=== PATIENT | male | born 1950 | race Caucasian/White ===

== ENCOUNTER 2020-07-28 14:56 | Inpatient (IN) ==
[2020-07-28] MEDS ORDERED: Ondansetron ODT 4 MG TAB.RAPDIS SL PRN (17:19)
[2020-07-28] MEDS: Acetaminophen 325 MG TABLET PO PRN (18:03)
[2020-07-28] MEDS: Hydrocortisone 10 MG TABLET PO SCH (18:04)
[2020-07-28] MEDS: Fluticasone Propionate Nasal 50 MCG/SPRAY BOTTLE NS SCH (19:58)
[2020-07-28] MEDS: levETIRAcetam 250 MG TABLET PO SCH (19:58)
[2020-07-28] MEDS: Melatonin 3 MG TABLET PO SCH (19:58)
[2020-07-28] MEDS: Famotidine 20 MG TABLET PO SCH (19:58)
[2020-07-28] MEDS: dexAMETHasone 4 MG TABLET PO SCH (19:58)
[2020-07-28] MEDS: Sulfamethoxazole/Trimeth Oral Soln 400-80mg/10 ML UDC PO SCH (19:59)
[2020-07-28] MEDS: Latanoprost 2.5 ML BOTTLE BOTH EYES SCH (19:59)
[2020-07-29] MEDS: *HR* Enoxaparin 40 MG/0.4 ML SYRINGE SQ SCH (06:45)
[2020-07-29 07:15] LABS: Hematocrit 41.5 % (37.5-50.1); Hemoglobin 13.8 g/dL (12.9-16.9); Mean Corpuscular HGB Conc 33.3 g/dL (31.6-35.5); Mean Corpuscular Hemoglobin 30.4 pg (28.0-33.3); Mean Corpuscular Volume 91.4 fL (83.0-100.0); Mean Platelet Volume 11.6 fL (9.4-12.4); Platelet Count 197 K/mcL (140-400); Red Blood Count 4.54 M/mcL (4.19-5.50); Red Cell Distribution Width 12.7 % (11.5-14.5)
[2020-07-29 07:18] LABS: White Blood Count 34.8 K/mcL (4.3-11.1)
[2020-07-29 07:32] LABS: BUN/Creatinine Ratio 26 (6-26); Blood Urea Nitrogen 32 mg/dL (8-23); Calcium 7.9 mg/dL (8.6-10.3); Carbon Dioxide 28 mEq/L (23-29); Chloride 101 mEq/L (98-107); Glucose 117 mg/dL (70-105); Osmolality,Calculated 288 (280-300); Potassium 4.7 mEq/L (3.5-5.1); Sodium 135 mEq/L (136-145); eGFR For African Americans > 60 (> 60); eGFR For Non-African Americans 58 (> 60)
[2020-07-29 08:35] LABS: Lymphocytes # 2.8 K/mcL (0.6-4.6); Neutrophils # 31.3 K/mcL (1.6-8.9); Platelet Estimate Normal (Normal); Toxic Vacuolation Present (Not Present)
[2020-07-29] MEDS: Hydrocortisone 10 MG TABLET PO SCH ×2 (10:04→17:01)
[2020-07-29] MEDS: Famotidine 20 MG TABLET PO SCH ×2 (10:04→19:51)
[2020-07-29] MEDS: Ascorbic Acid 500 MG TABLET PO SCH (10:05)
[2020-07-29] MEDS: Cholecalciferol (D-3) 1,000 UNIT (25MCG) TABLET PO SCH (10:05)
[2020-07-29] MEDS: levETIRAcetam 250 MG TABLET PO SCH ×2 (10:05→19:51)
[2020-07-29] MEDS: lisinopriL 10 MG TABLET PO SCH (10:06)
[2020-07-29] MEDS: dexAMETHasone 4 MG TABLET PO SCH ×2 (10:06→19:51)
[2020-07-29] MEDS: Sulfamethoxazole/Trimeth Oral Soln 400-80mg/10 ML UDC PO SCH ×2 (10:06→19:50)
[2020-07-29] MEDS: Aspirin Enteric Coated 81 MG Tablet PO SCH (10:09)
[2020-07-29] MEDS: TEMOZOLOMIDE PO SCH (10:10)
[2020-07-29] MEDS: Fluticasone Propionate Nasal 50 MCG/SPRAY BOTTLE NS SCH ×2 (10:10→19:51)
[2020-07-29] MEDS: Melatonin 3 MG TABLET PO SCH (19:51)
[2020-07-29] MEDS: Latanoprost 2.5 ML BOTTLE BOTH EYES SCH (19:52)
[2020-07-30] MEDS: *HR* Enoxaparin 40 MG/0.4 ML SYRINGE SQ SCH (05:40)
[2020-07-30] MEDS: levETIRAcetam 250 MG TABLET PO SCH ×2 (08:17→19:56)
[2020-07-30] MEDS: Aspirin Enteric Coated 81 MG Tablet PO SCH (08:17)
[2020-07-30] MEDS: lisinopriL 10 MG TABLET PO SCH (08:17)
[2020-07-30] MEDS: Cholecalciferol (D-3) 1,000 UNIT (25MCG) TABLET PO SCH (08:18)
[2020-07-30] MEDS: Ascorbic Acid 500 MG TABLET PO SCH (08:18)
[2020-07-30] MEDS: dexAMETHasone 4 MG TABLET PO SCH ×2 (08:18→19:56)
[2020-07-30] MEDS: Famotidine 20 MG TABLET PO SCH ×2 (08:18→19:56)
[2020-07-30] MEDS: Sulfamethoxazole/Trimeth Oral Soln 400-80mg/10 ML UDC PO SCH ×2 (08:19→19:56)
[2020-07-30] MEDS: Hydrocortisone 10 MG TABLET PO SCH ×2 (08:19→17:25)
[2020-07-30] MEDS: Fluticasone Propionate Nasal 50 MCG/SPRAY BOTTLE NS SCH ×2 (08:25→19:57)
[2020-07-30] MEDS: TEMOZOLOMIDE PO SCH (14:47)
[2020-07-30] MEDS: Latanoprost 2.5 ML BOTTLE BOTH EYES SCH (19:57)
[2020-07-30] MEDS: Melatonin 3 MG TABLET PO SCH (19:57)
[2020-07-31] MEDS: *HR* Enoxaparin 40 MG/0.4 ML SYRINGE SQ SCH (05:48)
[2020-07-31] MEDS: Fluticasone Propionate Nasal 50 MCG/SPRAY BOTTLE NS SCH ×2 (08:00→21:12)
[2020-07-31] MEDS: Ascorbic Acid 500 MG TABLET PO SCH (08:01)
[2020-07-31] MEDS: Famotidine 20 MG TABLET PO SCH ×2 (08:01→21:12)
[2020-07-31] MEDS: Hydrocortisone 10 MG TABLET PO SCH ×2 (08:01→17:56)
[2020-07-31] MEDS: Aspirin Enteric Coated 81 MG Tablet PO SCH (08:01)
[2020-07-31] MEDS: Sulfamethoxazole/Trimeth Oral Soln 400-80mg/10 ML UDC PO SCH ×2 (08:01→21:13)
[2020-07-31] MEDS: levETIRAcetam 250 MG TABLET PO SCH ×2 (08:01→21:11)
[2020-07-31] MEDS: Cholecalciferol (D-3) 1,000 UNIT (25MCG) TABLET PO SCH (08:02)
[2020-07-31] MEDS: lisinopriL 10 MG TABLET PO SCH (08:03)
[2020-07-31] MEDS: dexAMETHasone 4 MG TABLET PO SCH ×2 (08:03→21:12)
[2020-07-31] MEDS: TEMOZOLOMIDE PO SCH (08:03)
[2020-07-31] MEDS: Melatonin 3 MG TABLET PO SCH (21:12)
[2020-07-31] MEDS: Latanoprost 2.5 ML BOTTLE BOTH EYES SCH (21:12)
[2020-08-01] MEDS: *HR* Enoxaparin 40 MG/0.4 ML SYRINGE SQ SCH (05:52)
[2020-08-01] MEDS ORDERED: TEMOZOLOMIDE 140 MG PO SCH (09:00)
[2020-08-01] MEDS: dexAMETHasone 4 MG TABLET PO SCH ×2 (09:25→20:08)
[2020-08-01] MEDS: levETIRAcetam 250 MG TABLET PO SCH ×2 (09:25→20:09)
[2020-08-01] MEDS: Famotidine 20 MG TABLET PO SCH ×2 (09:25→20:09)
[2020-08-01] MEDS: Cholecalciferol (D-3) 1,000 UNIT (25MCG) TABLET PO SCH (09:26)
[2020-08-01] MEDS: lisinopriL 10 MG TABLET PO SCH (09:26)
[2020-08-01] MEDS: Hydrocortisone 10 MG TABLET PO SCH ×2 (09:26→16:32)
[2020-08-01] MEDS: Aspirin Enteric Coated 81 MG Tablet PO SCH (09:26)
[2020-08-01] MEDS: Sulfamethoxazole/Trimeth DS 1 EACH TABLET PO SCH ×2 (09:27→20:09)
[2020-08-01] MEDS: Ascorbic Acid 500 MG TABLET PO SCH (09:27)
[2020-08-01] MEDS: Fluticasone Propionate Nasal 50 MCG/SPRAY BOTTLE NS SCH ×2 (09:27→20:09)
[2020-08-01] MEDS: Melatonin 3 MG TABLET PO SCH (20:08)
[2020-08-01] MEDS: Latanoprost 2.5 ML BOTTLE BOTH EYES SCH (20:09)
[2020-08-02] MEDS: *HR* Enoxaparin 40 MG/0.4 ML SYRINGE SQ SCH (06:21)
[2020-08-02] MEDS: lisinopriL 10 MG TABLET PO SCH (08:31)
[2020-08-02] MEDS: Hydrocortisone 10 MG TABLET PO SCH ×2 (08:31→16:18)
[2020-08-02] MEDS: Sulfamethoxazole/Trimeth DS 1 EACH TABLET PO SCH ×2 (08:31→20:20)
[2020-08-02] MEDS: dexAMETHasone 4 MG TABLET PO SCH ×2 (08:31→16:18)
[2020-08-02] MEDS: Aspirin Enteric Coated 81 MG Tablet PO SCH (08:32)
[2020-08-02] MEDS: Famotidine 20 MG TABLET PO SCH ×2 (08:32→20:19)
[2020-08-02] MEDS: levETIRAcetam 250 MG TABLET PO SCH ×2 (08:32→20:19)
[2020-08-02] MEDS: Cholecalciferol (D-3) 1,000 UNIT (25MCG) TABLET PO SCH (08:32)
[2020-08-02] MEDS: Ascorbic Acid 500 MG TABLET PO SCH (08:33)
[2020-08-02] MEDS: Fluticasone Propionate Nasal 50 MCG/SPRAY BOTTLE NS SCH ×2 (08:33→20:20)
[2020-08-02] MEDS: TEMOZOLOMIDE 140 MG PO SCH (08:33)
[2020-08-02] MEDS: Melatonin 3 MG TABLET PO SCH (20:19)
[2020-08-02] MEDS: Latanoprost 2.5 ML BOTTLE BOTH EYES SCH (23:41)
[2020-08-03] MEDS: *HR* Enoxaparin 40 MG/0.4 ML SYRINGE SQ SCH (05:54)
[2020-08-03 08:17] LABS: Basophils # 0.1 K/mcL (0.0-0.2); Basophils % 0.2 %; Hematocrit 41.1 % (37.5-50.1); Hemoglobin 13.7 g/dL (12.9-16.9); Immature Granulocytes % 3.3 % (0-4); Lymphocytes # 0.9 K/mcL (0.6-4.6); Lymphocytes % 2.6 %; Mean Corpuscular HGB Conc 33.3 g/dL (31.6-35.5); Mean Corpuscular Hemoglobin 30.6 pg (28.0-33.3); Mean Corpuscular Volume 91.7 fL (83.0-100.0); Mean Platelet Volume 11.2 fL (9.4-12.4); Monocytes # 1.2 K/mcL (0.0-1.3); Monocytes % 3.6 %; Neutrophils # 29.9 K/mcL (1.6-8.9); Platelet Count 166 K/mcL (140-400); Red Blood Count 4.48 M/mcL (4.19-5.50); Segmented Neutrophils % 90.3 %
[2020-08-03 08:27] LABS: White Blood Count 33.1 K/mcL (4.3-11.1)
[2020-08-03 08:46] LABS: Platelet Estimate Normal (Normal)
[2020-08-03] MEDS: TEMOZOLOMIDE 140 MG PO SCH (08:49)
[2020-08-03 08:50] LABS: Alanine Aminotransferase 614 Units/L (7-52)
[2020-08-03] MEDS: Cholecalciferol (D-3) 1,000 UNIT (25MCG) TABLET PO SCH (08:50)
[2020-08-03] MEDS: Aspirin Enteric Coated 81 MG Tablet PO SCH (08:50)
[2020-08-03] MEDS: levETIRAcetam 250 MG TABLET PO SCH ×2 (08:50→20:45)
[2020-08-03] MEDS: Ascorbic Acid 500 MG TABLET PO SCH (08:50)
[2020-08-03] MEDS: Sulfamethoxazole/Trimeth DS 1 EACH TABLET PO SCH ×2 (08:50→20:45)
[2020-08-03] MEDS: Famotidine 20 MG TABLET PO SCH ×2 (08:51→20:45)
[2020-08-03] MEDS: dexAMETHasone 4 MG TABLET PO SCH ×2 (08:51→16:49)
[2020-08-03] MEDS: Hydrocortisone 10 MG TABLET PO SCH ×2 (08:51→16:50)
[2020-08-03] MEDS: Fluticasone Propionate Nasal 50 MCG/SPRAY BOTTLE NS SCH ×2 (08:52→20:57)
[2020-08-03] MEDS: lisinopriL 10 MG TABLET PO SCH (08:52)
[2020-08-03 08:54] LABS: Albumin 3.2 g/dL (3.5-5.7); Albumin/Globulin Ratio 1.3 (1.1-2.2); Alkaline Phosphatase 107 Units/L (34-104); Aspartate Amino Transferase 120 Units/L (13-39); BUN/Creatinine Ratio 35 (6-26); Bilirubin,Total 0.5 mg/dL (0.3-1.0); Blood Urea Nitrogen 40 mg/dL (8-23); Calcium 7.4 mg/dL (8.6-10.3); Carbon Dioxide 22 mEq/L (23-29); Chloride 100 mEq/L (98-107); Globulin 2.4 g/dL (2.4-3.5); Glucose 102 mg/dL (70-105); Osmolality,Calculated 280 (280-300); Potassium 5.1 mEq/L (3.5-5.1); Sodium 130 mEq/L (136-145); Total Protein 5.6 g/dL (6.4-8.9); eGFR For African Americans > 60 (> 60); eGFR For Non-African Americans > 60 (> 60)
[2020-08-03] MEDS: Acetaminophen 325 MG TABLET PO PRN (12:01)
[2020-08-03] MEDS: Latanoprost 2.5 ML BOTTLE BOTH EYES SCH (20:45)
[2020-08-03] MEDS: Melatonin 3 MG TABLET PO SCH (20:45)
[2020-08-04] MEDS: *HR* Enoxaparin 40 MG/0.4 ML SYRINGE SQ SCH (06:00)
[2020-08-04] MEDS: Cholecalciferol (D-3) 1,000 UNIT (25MCG) TABLET PO SCH (08:36)
[2020-08-04] MEDS: levETIRAcetam 250 MG TABLET PO SCH ×2 (08:36→21:02)
[2020-08-04] MEDS: Famotidine 20 MG TABLET PO SCH ×2 (08:37→21:02)
[2020-08-04] MEDS: Sulfamethoxazole/Trimeth DS 1 EACH TABLET PO SCH ×2 (08:37→21:03)
[2020-08-04] MEDS: Aspirin Enteric Coated 81 MG Tablet PO SCH (08:37)
[2020-08-04] MEDS: Ascorbic Acid 500 MG TABLET PO SCH (08:37)
[2020-08-04] MEDS: lisinopriL 10 MG TABLET PO SCH (08:37)
[2020-08-04] MEDS: TEMOZOLOMIDE 140 MG PO SCH (08:38)
[2020-08-04] MEDS: dexAMETHasone 4 MG TABLET PO SCH ×2 (08:43→17:40)
[2020-08-04] MEDS: Fluticasone Propionate Nasal 50 MCG/SPRAY BOTTLE NS SCH ×2 (08:44→21:03)
[2020-08-04] MEDS: Hydrocortisone 10 MG TABLET PO SCH ×2 (08:44→17:40)
[2020-08-04] MEDS: Melatonin 3 MG TABLET PO SCH (21:02)
[2020-08-04] MEDS: Acetaminophen 325 MG TABLET PO PRN (21:03)
[2020-08-04] MEDS: Latanoprost 2.5 ML BOTTLE BOTH EYES SCH (21:03)
[2020-08-05] MEDS: Acetaminophen 325 MG TABLET PO PRN ×3 (03:48→18:45)
[2020-08-05] MEDS: *HR* Enoxaparin 40 MG/0.4 ML SYRINGE SQ SCH (05:51)
[2020-08-05] MEDS: lisinopriL 10 MG TABLET PO SCH (07:46)
[2020-08-05] MEDS: Aspirin Enteric Coated 81 MG Tablet PO SCH (07:46)
[2020-08-05] MEDS: Ascorbic Acid 500 MG TABLET PO SCH (07:46)
[2020-08-05] MEDS: dexAMETHasone 4 MG TABLET PO SCH ×2 (07:46→18:45)
[2020-08-05] MEDS: Famotidine 20 MG TABLET PO SCH ×2 (07:46→20:12)
[2020-08-05] MEDS: Sulfamethoxazole/Trimeth DS 1 EACH TABLET PO SCH ×2 (07:46→20:12)
[2020-08-05] MEDS: Fluticasone Propionate Nasal 50 MCG/SPRAY BOTTLE NS SCH ×2 (07:47→20:08)
[2020-08-05] MEDS: Hydrocortisone 10 MG TABLET PO SCH ×2 (07:47→18:44)
[2020-08-05] MEDS: levETIRAcetam 250 MG TABLET PO SCH ×2 (07:47→20:12)
[2020-08-05] MEDS: Cholecalciferol (D-3) 1,000 UNIT (25MCG) TABLET PO SCH (07:47)
[2020-08-05] MEDS: TEMOZOLOMIDE 140 MG PO SCH (09:38)
[2020-08-05] MEDS: Melatonin 3 MG TABLET PO SCH (20:12)
[2020-08-05] MEDS: Latanoprost 2.5 ML BOTTLE BOTH EYES SCH (20:13)
[2020-08-06] MEDS: *HR* Enoxaparin 40 MG/0.4 ML SYRINGE SQ SCH (05:35)
[2020-08-06] MEDS: Famotidine 20 MG TABLET PO SCH ×2 (09:31→21:48)
[2020-08-06] MEDS: TEMOZOLOMIDE 140 MG PO SCH (09:31)
[2020-08-06] MEDS: dexAMETHasone 4 MG TABLET PO SCH ×2 (09:31→17:02)
[2020-08-06] MEDS: Fluticasone Propionate Nasal 50 MCG/SPRAY BOTTLE NS SCH ×2 (09:32→21:51)
[2020-08-06] MEDS: lisinopriL 10 MG TABLET PO SCH (09:32)
[2020-08-06] MEDS: Ascorbic Acid 500 MG TABLET PO SCH (09:32)
[2020-08-06] MEDS: Hydrocortisone 10 MG TABLET PO SCH ×2 (09:32→17:02)
[2020-08-06] MEDS: levETIRAcetam 250 MG TABLET PO SCH ×2 (09:32→21:50)
[2020-08-06] MEDS: Cholecalciferol (D-3) 1,000 UNIT (25MCG) TABLET PO SCH (09:32)
[2020-08-06] MEDS: Sulfamethoxazole/Trimeth DS 1 EACH TABLET PO SCH ×2 (09:32→21:50)
[2020-08-06] MEDS: Aspirin Enteric Coated 81 MG Tablet PO SCH (09:32)
[2020-08-06] MEDS: Acetaminophen 325 MG TABLET PO PRN (13:55)
[2020-08-06] MEDS: Melatonin 3 MG TABLET PO SCH (21:49)
[2020-08-06] MEDS: Latanoprost 2.5 ML BOTTLE BOTH EYES SCH (21:51)
[2020-08-07] MEDS: *HR* Enoxaparin 40 MG/0.4 ML SYRINGE SQ SCH (06:01)
[2020-08-07] MEDS: Hydrocortisone 10 MG TABLET PO SCH ×2 (08:28→17:19)
[2020-08-07] MEDS: levETIRAcetam 250 MG TABLET PO SCH ×2 (08:29→21:27)
[2020-08-07] MEDS: Cholecalciferol (D-3) 1,000 UNIT (25MCG) TABLET PO SCH (08:29)
[2020-08-07] MEDS: Ascorbic Acid 500 MG TABLET PO SCH (08:29)
[2020-08-07] MEDS: Aspirin Enteric Coated 81 MG Tablet PO SCH (08:29)
[2020-08-07] MEDS: Famotidine 20 MG TABLET PO SCH ×2 (08:29→21:27)
[2020-08-07] MEDS: lisinopriL 10 MG TABLET PO SCH (08:29)
[2020-08-07] MEDS: Acetaminophen 325 MG TABLET PO PRN ×2 (08:29→16:07)
[2020-08-07] MEDS: dexAMETHasone 4 MG TABLET PO SCH ×2 (08:29→17:19)
[2020-08-07] MEDS: Sulfamethoxazole/Trimeth DS 1 EACH TABLET PO SCH ×2 (08:30→21:27)
[2020-08-07] MEDS: Fluticasone Propionate Nasal 50 MCG/SPRAY BOTTLE NS SCH ×2 (08:31→21:25)
[2020-08-07] MEDS: TEMOZOLOMIDE 140 MG PO SCH (08:34)
[2020-08-07] MEDS ORDERED: Ipratropium/Albuterol Neb 3 ML IH PRN (15:13)
[2020-08-07 15:32] LABS: Hematocrit 40.4 % (37.5-50.1); Hemoglobin 13.8 g/dL (12.9-16.9); Mean Corpuscular HGB Conc 34.2 g/dL (31.6-35.5); Mean Corpuscular Hemoglobin 30.7 pg (28.0-33.3); Mean Corpuscular Volume 89.8 fL (83.0-100.0); Platelet Count 156 K/mcL (140-400); Red Cell Distribution Width 14.3 % (11.5-14.5); White Blood Count 24.6 K/mcL (4.3-11.1)
[2020-08-07] MEDS: Nystatin SUSP 5 ML UD.LIQ PO SCH ×3 (15:34→21:40)
[2020-08-07 15:47] LABS: BUN/Creatinine Ratio 34 (6-26); Blood Urea Nitrogen 42 mg/dL (8-23); Calcium 7.8 mg/dL (8.6-10.3); Carbon Dioxide 21 mEq/L (23-29); Chloride 100 mEq/L (98-107); Glucose 108 mg/dL (70-105); Magnesium 2.4 mg/dL (1.6-2.6); Osmolality,Calculated 277 (280-300); Potassium 5.4 mEq/L (3.5-5.1); Sodium 128 mEq/L (136-145); eGFR For African Americans > 60 (> 60); eGFR For Non-African Americans 58 (> 60)
[2020-08-07] MEDS: Latanoprost 2.5 ML BOTTLE BOTH EYES SCH (21:26)
[2020-08-07] MEDS: Melatonin 3 MG TABLET PO SCH (21:27)
[2020-08-07 22:33] LABS: Basophils % 0.1 %; Hematocrit 43.9 % (37.5-50.1); Hemoglobin 14.9 g/dL (12.9-16.9); Lymphocytes # 0.6 K/mcL (0.6-4.6); Lymphocytes % 2.2 %; Mean Corpuscular HGB Conc 33.9 g/dL (31.6-35.5); Mean Corpuscular Hemoglobin 30.7 pg (28.0-33.3); Mean Corpuscular Volume 90.3 fL (83.0-100.0); Mean Platelet Volume 11.5 fL (9.4-12.4); Monocytes # 1.2 K/mcL (0.0-1.3); Monocytes % 4.1 %; Neutrophils # 26.2 K/mcL (1.6-8.9); Platelet Count 159 K/mcL (140-400); Red Blood Count 4.86 M/mcL (4.19-5.50); Red Cell Distribution Width 14.6 % (11.5-14.5); Segmented Neutrophils % 92.6 %; White Blood Count 28.3 K/mcL (4.3-11.1)
[2020-08-07 22:50] LABS: Magnesium 2.5 mg/dL (1.6-2.6); Phosphorous 3.9 mg/dL (2.7-4.5)
[2020-08-07 22:51] LABS: BUN/Creatinine Ratio 30 (6-26); Blood Urea Nitrogen 43 mg/dL (8-23); Carbon Dioxide 20 mEq/L (23-29); Chloride 99 mEq/L (98-107); Glucose 111 mg/dL (70-105); Osmolality,Calculated 278 (280-300); Potassium 5.9 mEq/L (3.5-5.1); Sodium 128 mEq/L (136-145); eGFR For African Americans > 60 (> 60); eGFR For Non-African Americans 50 (> 60)
[2020-08-07] MEDS ORDERED: Furosemide 40 MG/4 ML VIAL IVP ONE (22:56)
[2020-08-07] MEDS ORDERED: Insulin Human Regular 10 UNIT in 0.9 % Sodium Chloride 10 ML IV ONE (22:57)
[2020-08-07] MEDS ORDERED: *HR* Dextrose 50 % in Water (Vial) 50 ML VIAL IVP ONE (22:58)
[2020-08-07] MEDS ORDERED: Albuterol 2.5 MG/3 ML NEBULIZER IH ONE (23:03)
[2020-08-08] MEDS: *HR* Enoxaparin 40 MG/0.4 ML SYRINGE SQ SCH (06:40)
[2020-08-08 06:58] LABS: BUN/Creatinine Ratio 34 (6-26); Blood Urea Nitrogen 44 mg/dL (8-23); Calcium 7.7 mg/dL (8.6-10.3); Carbon Dioxide 20 mEq/L (23-29); Chloride 100 mEq/L (98-107); Glucose 100 mg/dL (70-105); Osmolality,Calculated 279 (280-300); Potassium 5.1 mEq/L (3.5-5.1); Sodium 129 mEq/L (136-145); eGFR For African Americans > 60 (> 60); eGFR For Non-African Americans 55 (> 60)
[2020-08-08] MEDS: Cholecalciferol (D-3) 1,000 UNIT (25MCG) TABLET PO SCH (09:08)
[2020-08-08] MEDS: Nystatin SUSP 5 ML UD.LIQ PO SCH ×4 (09:08→21:25)
[2020-08-08] MEDS: Hydrocortisone 10 MG TABLET PO SCH ×2 (09:08→17:20)
[2020-08-08] MEDS: levETIRAcetam 250 MG TABLET PO SCH ×2 (09:08→21:23)
[2020-08-08] MEDS: Famotidine 20 MG TABLET PO SCH ×2 (09:09→21:24)
[2020-08-08] MEDS: dexAMETHasone 4 MG TABLET PO SCH ×2 (09:09→17:22)
[2020-08-08] MEDS: Aspirin Enteric Coated 81 MG Tablet PO SCH (09:09)
[2020-08-08] MEDS: Sulfamethoxazole/Trimeth DS 1 EACH TABLET PO SCH ×2 (09:09→21:24)
[2020-08-08] MEDS: Ascorbic Acid 500 MG TABLET PO SCH (09:09)
[2020-08-08] MEDS: Fluticasone Propionate Nasal 50 MCG/SPRAY BOTTLE NS SCH ×2 (09:09→21:23)
[2020-08-08] MEDS: lisinopriL 10 MG TABLET PO SCH (09:09)
[2020-08-08] MEDS: TEMOZOLOMIDE 140 MG PO SCH (09:11)
[2020-08-08] MEDS: Melatonin 3 MG TABLET PO SCH (21:24)
[2020-08-08] MEDS: Latanoprost 2.5 ML BOTTLE BOTH EYES SCH (21:25)
[2020-08-09] MEDS: Acetaminophen 325 MG TABLET PO PRN ×2 (05:44→21:55)
[2020-08-09] MEDS: *HR* Enoxaparin 40 MG/0.4 ML SYRINGE SQ SCH (05:46)
[2020-08-09] MEDS ORDERED: Nitroglycerin 0.4 MG TAB.SUBL SL PRN (06:00)
[2020-08-09 06:59] LABS: BUN/Creatinine Ratio 37 (6-26); Blood Urea Nitrogen 42 mg/dL (8-23); Calcium 7.7 mg/dL (8.6-10.3); Carbon Dioxide 23 mEq/L (23-29); Chloride 100 mEq/L (98-107); Glucose 110 mg/dL (70-105); Osmolality,Calculated 281 (280-300); Potassium 5.3 mEq/L (3.5-5.1); Sodium 130 mEq/L (136-145); eGFR For African Americans > 60 (> 60); eGFR For Non-African Americans > 60 (> 60)
[2020-08-09 07:50] LABS: Basophils % 0.1 %; Hematocrit 42.8 % (37.5-50.1); Hemoglobin 14.4 g/dL (12.9-16.9); Immature Granulocytes % 1.4 % (0-4); Lymphocytes # 0.6 K/mcL (0.6-4.6); Lymphocytes % 2.3 %; Mean Corpuscular HGB Conc 33.6 g/dL (31.6-35.5); Mean Corpuscular Hemoglobin 30.8 pg (28.0-33.3); Mean Corpuscular Volume 91.6 fL (83.0-100.0); Mean Platelet Volume 10.9 fL (9.4-12.4); Monocytes # 0.9 K/mcL (0.0-1.3); Monocytes % 3.3 %; Platelet Count 144 K/mcL (140-400); Red Blood Count 4.67 M/mcL (4.19-5.50); Red Cell Distribution Width 14.6 % (11.5-14.5); Segmented Neutrophils % 92.9 %; White Blood Count 27.4 K/mcL (4.3-11.1)
[2020-08-09 08:03] LABS: Neutrophils # 25.5 K/mcL (1.6-8.9)
[2020-08-09 08:28] LABS: Platelet Estimate Normal (Normal)
[2020-08-09] MEDS: levETIRAcetam 250 MG TABLET PO SCH ×2 (08:58→21:30)
[2020-08-09] MEDS: Nystatin SUSP 5 ML UD.LIQ PO SCH ×4 (08:58→21:29)
[2020-08-09] MEDS: Famotidine 20 MG TABLET PO SCH ×2 (08:59→21:30)
[2020-08-09] MEDS: Cholecalciferol (D-3) 1,000 UNIT (25MCG) TABLET PO SCH (08:59)
[2020-08-09] MEDS: Ascorbic Acid 500 MG TABLET PO SCH (08:59)
[2020-08-09] MEDS: Sulfamethoxazole/Trimeth DS 1 EACH TABLET PO SCH (08:59)
[2020-08-09] MEDS: Hydrocortisone 10 MG TABLET PO SCH ×2 (08:59→16:31)
[2020-08-09] MEDS: Aspirin Enteric Coated 81 MG Tablet PO SCH (08:59)
[2020-08-09] MEDS: dexAMETHasone 4 MG TABLET PO SCH ×2 (09:00→16:31)
[2020-08-09] MEDS: lisinopriL 10 MG TABLET PO SCH ×2 (09:00→09:03)
[2020-08-09] MEDS: Fluticasone Propionate Nasal 50 MCG/SPRAY BOTTLE NS SCH ×2 (09:00→21:31)
[2020-08-09 16:34] LABS: Basophils % 0.1 %; Hematocrit 41.4 % (37.5-50.1); Hemoglobin 14.1 g/dL (12.9-16.9); Immature Granulocytes % 1.1 % (0-4); Lymphocytes # 0.4 K/mcL (0.6-4.6); Lymphocytes % 1.4 %; Mean Corpuscular HGB Conc 34.1 g/dL (31.6-35.5); Mean Corpuscular Hemoglobin 30.5 pg (28.0-33.3); Mean Corpuscular Volume 89.6 fL (83.0-100.0); Monocytes # 0.9 K/mcL (0.0-1.3); Neutrophils # 27.5 K/mcL (1.6-8.9); Platelet Count 158 K/mcL (140-400); Red Blood Count 4.62 M/mcL (4.19-5.50); Red Cell Distribution Width 14.6 % (11.5-14.5); Segmented Neutrophils % 94.4 %; White Blood Count 29.1 K/mcL (4.3-11.1)
[2020-08-09 16:59] LABS: BUN/Creatinine Ratio 36 (6-26); Blood Urea Nitrogen 43 mg/dL (8-23); Calcium 7.7 mg/dL (8.6-10.3); Carbon Dioxide 21 mEq/L (23-29); Chloride 98 mEq/L (98-107); Glucose 119 mg/dL (70-105); Magnesium 2.3 mg/dL (1.6-2.6); Osmolality,Calculated 274 (280-300); Potassium 5.7 mEq/L (3.5-5.1); Sodium 126 mEq/L (136-145); eGFR For African Americans > 60 (> 60); eGFR For Non-African Americans > 60 (> 60)
[2020-08-09] MEDS ORDERED: Insulin Human Regular 10 UNIT in 0.9 % Sodium Chloride 10 ML IV ONE (17:10)
[2020-08-09] MEDS ORDERED: *HR* Dextrose 50 % in Water (Vial) 50 ML VIAL IVP ONE (17:15)
[2020-08-09] MEDS ORDERED: Furosemide 20 MG/2 ML VIAL IVP ONE (21:19)
[2020-08-09] MEDS: Melatonin 3 MG TABLET PO SCH (21:30)
[2020-08-09] MEDS: Latanoprost 2.5 ML BOTTLE BOTH EYES SCH (21:32)
[2020-08-10] MEDS: *HR* Enoxaparin 40 MG/0.4 ML SYRINGE SQ SCH (06:15)
[2020-08-10 07:19] LABS: Basophils % 0.1 %; Eosinophils % 0.1 %; Hematocrit 38.7 % (37.5-50.1); Hemoglobin 13.6 g/dL (12.9-16.9); Immature Granulocytes % 0.9 % (0-4); Lymphocytes # 0.7 K/mcL (0.6-4.6); Lymphocytes % 2.7 %; Mean Corpuscular HGB Conc 35.1 g/dL (31.6-35.5); Mean Corpuscular Hemoglobin 30.9 pg (28.0-33.3); Monocytes # 0.7 K/mcL (0.0-1.3); Monocytes % 2.6 %; Neutrophils # 24.9 K/mcL (1.6-8.9); Platelet Count 154 K/mcL (140-400); Red Cell Distribution Width 14.5 % (11.5-14.5); Segmented Neutrophils % 93.6 %; White Blood Count 26.6 K/mcL (4.3-11.1)
[2020-08-10 07:30] LABS: BUN/Creatinine Ratio 34 (6-26); Blood Urea Nitrogen 40 mg/dL (8-23); Calcium 7.5 mg/dL (8.6-10.3); Carbon Dioxide 23 mEq/L (23-29); Chloride 99 mEq/L (98-107); Glucose 96 mg/dL (70-105); Osmolality,Calculated 278 (280-300); Potassium 5.2 mEq/L (3.5-5.1); Sodium 129 mEq/L (136-145); eGFR For African Americans > 60 (> 60); eGFR For Non-African Americans > 60 (> 60)
[2020-08-10] MEDS ORDERED: 0.9 % Sodium Chloride 250 ML IVC ONE (08:24)
[2020-08-10] MEDS: Acetaminophen 325 MG TABLET PO PRN (08:28)
[2020-08-10] MEDS: Fluticasone Propionate Nasal 50 MCG/SPRAY BOTTLE NS SCH ×2 (09:05→22:29)
[2020-08-10] MEDS: Cholecalciferol (D-3) 1,000 UNIT (25MCG) TABLET PO SCH (09:05)
[2020-08-10] MEDS: levETIRAcetam 250 MG TABLET PO SCH ×2 (09:06→22:29)
[2020-08-10] MEDS: Aspirin Enteric Coated 81 MG Tablet PO SCH (09:06)
[2020-08-10] MEDS: dexAMETHasone 4 MG TABLET PO SCH ×2 (09:06→17:35)
[2020-08-10] MEDS: Hydrocortisone 10 MG TABLET PO SCH ×2 (09:06→17:35)
[2020-08-10] MEDS: Ascorbic Acid 500 MG TABLET PO SCH (09:06)
[2020-08-10] MEDS: Famotidine 20 MG TABLET PO SCH ×2 (09:06→22:29)
[2020-08-10] MEDS: Nystatin SUSP 5 ML UD.LIQ PO SCH ×4 (09:07→22:30)
[2020-08-10] MEDS ORDERED: 0.9 % Sodium Chloride 500 ML IVC ONE (11:02)
[2020-08-10] MEDS ORDERED: 0.9 % Sodium Chloride 1,000 ML IVC SCH (11:15)
[2020-08-10] MEDS: Melatonin 3 MG TABLET PO SCH (22:29)
[2020-08-10] MEDS: Latanoprost 2.5 ML BOTTLE BOTH EYES SCH (22:30)
[2020-08-11] MEDS: *HR* Enoxaparin 40 MG/0.4 ML SYRINGE SQ SCH (05:59)
[2020-08-11 06:58] VITALS: BP 112/70
[2020-08-11 07:13] LABS: Basophils % 0.2 %; Hematocrit 38.2 % (37.5-50.1); Hemoglobin 13.1 g/dL (12.9-16.9); Immature Granulocytes % 1.1 % (0-4); Lymphocytes # 0.5 K/mcL (0.6-4.6); Lymphocytes % 2.2 %; Mean Corpuscular HGB Conc 34.3 g/dL (31.6-35.5); Mean Corpuscular Volume 90.5 fL (83.0-100.0); Mean Platelet Volume 11.1 fL (9.4-12.4); Monocytes # 0.5 K/mcL (0.0-1.3); Monocytes % 2.1 %; Neutrophils # 20.4 K/mcL (1.6-8.9); Platelet Count 147 K/mcL (140-400); Red Blood Count 4.22 M/mcL (4.19-5.50); Red Cell Distribution Width 14.8 % (11.5-14.5); Segmented Neutrophils % 94.4 %; White Blood Count 21.6 K/mcL (4.3-11.1)
[2020-08-11 07:39] LABS: Alanine Aminotransferase 191 Units/L (7-52); Albumin 2.5 g/dL (3.5-5.7); Albumin/Globulin Ratio 1.2 (1.1-2.2); Alkaline Phosphatase 74 Units/L (34-104); Aspartate Amino Transferase 32 Units/L (13-39); BUN/Creatinine Ratio 35 (6-26); Bilirubin,Total 0.6 mg/dL (0.3-1.0); Blood Urea Nitrogen 35 mg/dL (8-23); Calcium 7.3 mg/dL (8.6-10.3); Carbon Dioxide 21 mEq/L (23-29); Chloride 102 mEq/L (98-107); Globulin 2.1 g/dL (2.4-3.5); Glucose 104 mg/dL (70-105); Magnesium 2.4 mg/dL (1.6-2.6); Osmolality,Calculated 276 (280-300); Phosphorous 3.2 mg/dL (2.7-4.5); Potassium 5.1 mEq/L (3.5-5.1); Sodium 129 mEq/L (136-145); Total Protein 4.6 g/dL (6.4-8.9); eGFR For African Americans > 60 (> 60); eGFR For Non-African Americans > 60 (> 60)
[2020-08-11] MEDS ORDERED: Isovue-370 500 ML BOTTLE IVP ONE (08:51)
[2020-08-11] MEDS: levETIRAcetam 250 MG TABLET PO SCH (09:39)
[2020-08-11] MEDS: Cholecalciferol (D-3) 1,000 UNIT (25MCG) TABLET PO SCH (09:39)
[2020-08-11] MEDS: Famotidine 20 MG TABLET PO SCH (09:40)
[2020-08-11] MEDS: Nystatin SUSP 5 ML UD.LIQ PO SCH (09:40)
[2020-08-11] MEDS: dexAMETHasone 4 MG TABLET PO SCH (09:40)
[2020-08-11] MEDS: Aspirin Enteric Coated 81 MG Tablet PO SCH (09:40)
[2020-08-11] MEDS: Ascorbic Acid 500 MG TABLET PO SCH (09:40)
[2020-08-11] MEDS: Hydrocortisone 10 MG TABLET PO SCH (09:41)
[2020-08-11] MEDS: Fluticasone Propionate Nasal 50 MCG/SPRAY BOTTLE NS SCH (09:41)
[2020-08-13] MEDS ORDERED: dexAMETHasone 4 MG TABLET PO SCH (09:00)
== END 2020-08-11 10:54 | disposition short-term general hospital (02) | DRG 55 ==
LOC: INPPIK 17:10
PROVIDERS: ADMIT Family Medicine; ATTEND Family Medicine